=== PATIENT | male | born 1990 | race American Indian/Alaskan Native ===

== ENCOUNTER 2019-02-23 15:35 | Emergency (ER) | payer SELFPAY ==
[2019-02-23] MEDS ORDERED: SOLU-Medrol IV ONE (15:37)
[2019-02-23] MEDS ORDERED: PROVENTIL IH ONE (15:39)
[2019-02-23] MEDS ORDERED: ATROVENT IH ONE (15:41)
--- NOTE | 2019-02-23 15:43 | Event Note ---
ED Screening Note Date of service: 02/23/19 Time: 15:42 ED Screening Note: Pt with known hx of asthma complains of asthma attack x 2 hours [employer]. States inhaler not working. Hx of intubation for asthma This initial assessment/diagnostic orders/clinical plan/treatment(s) is/are subject to change based on patients health status, clinical progression and re- assessment by fellow clinical providers in the ED. Further treatment and workup at subsequent clinical providers discretion. Patient/guardian urged not to elope from the ED as their condition may be serious if not clinically assessed and managed. Initial orders include: Labs CXR Solumedrol continuous Duoneb
[2019-02-23] MEDS ORDERED: SOLU-Medrol IM ONE (15:58)
[2019-02-23 16:32] LABS: Hematocrit 48.2 % (35.5-45.6); Hemoglobin 16.5 gm/dl (11.8-15.2); Mean Corpuscular HGB Conc 34 % (32-34); Mean Corpuscular Volume 89 fl (84-94); Platelet Count 201 K/mm3 (140-440); Red Blood Count 5.41 M/mm3 (3.65-5.03); Red Cell Distribution Width 13.2 % (13.2-15.2)
[2019-02-23 16:47] LABS: BUN/Creatinine Ratio 15; Blood Urea Nitrogen 19 mg/dL (9-20); Calcium 9.5 mg/dL (8.4-10.2); Hemolysis Index 30
--- NOTE | 2019-02-23 17:08 | Emergency Department Report ---
ED Asthma HPI - General Chief Complaint: Dyspnea/Respdistress Stated Complaint: ASTHMA ATTACK Time Seen by Provider: 02/23/19 17:04 Source: patient Mode of arrival: Ambulatory Limitations: No Limitations - History of Present Illness Initial Comments: 28-year-old -Armenian male presents to the emergency room complaining of difficulty breathing with wheezing. Patient reports that he has a past medical history of asthma and has a history of intubation. Patient reports he was cooking when he got overcome by the smoke. Patient reports he was using his inhaler but not getting much relief. Patient denies any fever or chills. MD Complaint: "asthma attack" Onset/Timin -: hour(s) ([employer]) Asthma History: history of frequent attac, history of prior ED visit, previously intubated Severity: severe Context: smoke exposure (during cooking) Treatments Prior to Arrival: inhaled bronchodilator - Related Data Current Asthma Therapy: inhaled bronchodilator Previous Rx's Medication Instructions Recorded Last Taken Type Albuterol Sulfate [Proventil Hfa] 6.7 gm IH QID PRN #1 hfa.aer.ad 02/23/19 Unkn own Rx predniSONE [Deltasone] 20 mg PO QDAY 5 Days #5 tab 02/23/19 Unknown Rx Allergies Allergy/AdvReac Type Severity Reaction Status Date / Time ketamine [From Ketalar] Allergy Unknown Verified 02/23/19 15:41 ED Review of Systems ROS: Stated complaint: ASTHMA ATTACK Other details as noted in HPI Comment: All other systems reviewed and negative Respiratory: cough, shortness of breath, wheezing ED Past Medical Hx - Social History Smoking Status: Never Smoker Substance Use Type: Alcohol, Marijuana - Medications Home Medications: Home Medications Medication Instructions Recorded Confirmed Last Taken Type Albuterol Sulfate [Proventil Hfa] 6.7 gm IH QID PRN #1 hfa.aer.ad 02/23/19 Unknown Rx predniSONE [Deltasone] 20 mg PO QDAY 5 Days #5 tab 02/23/19 Unknown Rx ED Physical Exam - General Limitations: No Limitations General appearance: alert, in no apparent distress - Head Head exam: Present: atraumatic, normocephalic - Eye Eye exam: Present: normal appearance - ENT ENT exam: Present: mucous membranes moist - Neck Neck exam: Present: normal inspection - Respiratory Respiratory exam: Present: normal lung sounds bilaterally. Absent: respiratory distress, wheezes - Cardiovascular Cardiovascular Exam: Present: regular rate, normal rhythm. Absent: systolic murmur, diastolic murmur, rubs, gallop - GI/Abdominal GI/Abdominal exam: Present: soft, normal bowel sounds - Neurological Exam Neurological exam: Present: alert, oriented X3, normal gait - Psychiatric Psychiatric exam: Present: normal affect, normal mood - Skin Skin exam: Present: warm, dry, intact, normal color. Absent: rash ED Course Vital Signs 02/23/19 15:38 Temperature 97.5 F L Pulse Rate 111 H Respiratory 18 Rate Blood Pressure 134/94 O2 Sat by Pulse 94 Oximetry ED Medical Decision Making - Lab Data Result diagrams: 02/23/19 16:02 02/23/19 16:02 - Radiology Data Radiology results: report reviewed Patient: JESSIE SULLIVAN MR#: [id number] : 1990 Acct:[id number] Age/Sex: 28 / M ADM Date: 02/23/19 Loc: ED Attending Dr: Ordering Physician: CAROLIN BLOUNT Date of Service: 02/23/19 Procedure(s): XR chest routine 2V Accession Number(s): [id number] cc: CAROLIN BLOUNT Fluoro Time In Minutes: CHEST PA AND LATERAL VIEWS INDICATION: shortness of breath, chest pain. COMPARISON: None. FINDINGS: Support devices: Unchanged. Heart: Stable. Lungs/Pleura: No acute pulmonary or pleural findings. IMPRESSION: 1. No significant change. Signer Name: Madi Paz MD Signed: 02/23/2019 5:05 PM Workstation Name: [id number] Transcribed By: SW Dictated By: Madi Paz MD Electronically Authenticated By: Madi Paz MD Signed Date/Time: 02/23/191704 DD/ 04 TD/TT: - Medical Decision Making 28-year-old -Armenian male presents to the emergency room complaining of difficulty breathing with wheezing. Patient reports that he has a past medical history of asthma and has a history of intubation. Patient reports he was cooking when he got overcome by the smoke. Patient reports he was using his inhaler but not getting much relief. Patient denies any fever or chills. Patient comes in with reported wheezing. Patient has started his asthma treatment prior to this provider evaluating patient. At this time patient respiratory examination is clear to auscultation patient is not using any accessory muscles no wheezing appreciated. Chest x-rays pending. Critical care attestation.: If time is entered above; I have spent that time in minutes in the direct care of this critically ill patient, excluding procedure time. ED Disposition Clinical Impression: Asthma attack Disposition: DC- TO HOME OR SELFCARE Is pt being admited?: No Does the pt Need Aspirin: No Condition: Stable Instructions: Asthma (ED) Prescriptions: predniSONE [Deltasone] 20 mg PO QDAY 5 Days #5 tab Albuterol Sulfate [Proventil Hfa] 6.7 gm IH QID PRN #1 hfa.aer.ad PRN Reason: Wheezing Referrals: SAMUEL ANDRADE MD [Staff Physician] - 3-5 Days Forms: Work/School Release Form(ED)
[2019-02-23 18:02] VITALS: BP 140/73
[2019-02-23 18:13] LABS: Ovalocytes Few; Platelet Estimate Consistent w Auto; Total Cells Counted 100
== END 2019-02-23 17:58 | disposition home or self-care (01) ==
LOC: ED 15:35
DX: J45.909 Unspecified asthma, uncomplicated (principal); F12.10 Cannabis abuse, uncomplicated
CPT/HCPCS: 36415; 71046; 80048; 85007; 85025; 96372; 99284; J2930